=== PATIENT | female | born 1945 | race Two or more races ===

== ENCOUNTER 2023-04-15 20:21 | Emergency (ER) | payer OTHER ==
[~2023-04-15] VITALS: Ht 149.9 cm; Wt 45.4 kg
[2023-04-15] MEDS ORDERED: LOSARTAN POTASS50 MG PO (21:06)
[2023-04-15] MEDS ORDERED: HYDROCHLOROTH12.5 MG PO (21:06)
[2023-04-15] MEDS ORDERED: ATORVASTATIN CA20 MG PO (21:06)
[2023-04-15] MEDS ORDERED: METFORMIN HCL1000 M2 PO (21:07)
[2023-04-15] MEDS ORDERED: GLIPIZIDE XL5 MG PO (21:07)
[2023-04-15] MEDS ORDERED: TRELEGY ELLIPT1 EAC1 IH (21:07)
[2023-04-15 21:24] LABS: HEMATOCRIT 33.7 % (36.0-45.00); MEAN CELL VOLUME 86.4 fL (80.00-100.00); MEAN CORPUSCULAR HEMOGLOBIN 28.3 pg (27.00-32.0); MEAN CORPUSCULAR HGB CONC 32.8 g/dl (32.0-36.0); PLATELET COUNT 256 K/uL (150-450); RED CELL DISTRIBUTION WIDTH 13.5 % (11.5-14.5)
[2023-04-15 21:41] LABS: INR 1.09; PARTIAL THROMBOPLASTIN TIME 25.6 SECONDS (22.0-34.0); PROTHROMBIN TIME 11.4 SECONDS (9.0-11.5)
[2023-04-15 21:46] LABS: CALCIUM 9.4 mg/dL (8.5-10.1); CREATININE SERUM 1.19 mg/dL (0.55-1.02); GFR 44.1; POTASSIUM 4.37 mEq/L (3.5-5.1)
[2023-04-15 22:50] LABS: ABG pCO2 44.7 mmHg (35-45); BASE EXCESS 3.2 mmol/l; BICARBONATE 28.3 mmol/l (23-25); Tco2 29.7 mmol/l; o2 32 %
[2023-04-15 22:51] LABS: ABG PO2 40.2 mmHg (80-100); allen test SATISFACTORY; puncture site RADIAL LEFT
[2023-04-15 22:56] LABS: SaO2 76.9 %
[2023-04-16] MEDS ORDERED: BUDESONIDE0.5 MG/2 M IH (07:44)
[2023-04-16] MEDS ORDERED: ALBUTEROL2.5 MG/3 M IH (07:44)
[2023-04-16] MEDS ORDERED: ZYNCOF 20-400120 ML PO (07:45)
== END 2023-04-16 12:00 ==
LOC: ER 20:22
PROVIDERS: Emergency Medicine
DX: J44.1 Chronic obstructive pulmonary disease with (acute) exacerbation (principal); R07.9 Chest pain, unspecified; I10 Essential (primary) hypertension